=== PATIENT | male | born 1985 | race Caucasian/White ===

== ENCOUNTER 2018-10-09 23:22 | Emergency (ER) | payer OTHER ==
[2018-10-10] MEDS ORDERED: Omeprazole CAP (NF) 20 MG CAP.DR PO ONE (00:05)
[2018-10-10] MEDS ORDERED: hydrOXYzine HCL TAB* 25 MG PO ONE (00:05)
--- NOTE | 2018-10-10 00:11 | ED ---
Throat Pain/Nasal Congestion - HPI Summary HPI Summary: 33 year male presents with "cotton feeling" in throat. He denies any foreign body sensation. He denies any pain. He was seen in urgent care a couple days ago and he had a negative strep. He was started on Mucinex and Flonase with minimal relief. He states he does have a history of acid reflux. No current abdominal pain. No nausea and no vomiting. Denies any change with food. He states that he feels like he has mucus in the back is throat and it caused him to have a panic attack tonight. Denies any chest pressure or shortness of breath. No sinus congestion. No headache. No other symptoms. Denies any swelling. is on lisinopril. Denies any tongue swelling. - History of Current Complaint Chief Complaint: EDThroatPain Time Seen by Provider: 10/09/18 23:46 - Allergies/Home Medications Allergies/Adverse Reactions: Allergies Allergy/AdvReac Type Severity Reaction Status Date / Time Sulfa (Sulfonamide Allergy Hives Verified 10/09/18 23:26 Antibiotics) Home Medications: Home Medications Cholecalciferol (Vitamin D3) [Vitamin D3] 1,000 unit PO DAILY 10/10/18 [History Confirmed 10/10/18] Lisinopril TAB* [Prinivil TAB*] 20 mg PO DAILY 10/10/18 [History Confirmed 10/10] PMH/Surg Hx/FS Hx/Imm Hx Endocrine/Hematology History: Denies: Hx Anticoagulant Therapy Respiratory History: Denies: Hx Asthma Infectious Disease History: No Infectious Disease History: Denies: Traveled Outside the [place] in Last 30 Days - Family History Known Family History: Positive: Non-Contributory - Social History Alcohol Use: None Substance Use Type: Reports: Marijuana Smoking Status (MU): Light Every Day Tobacco Smoker Review of Systems Negative: Fever Positive: Sore Throat Negative: Chest Pain Negative: Shortness Of Breath All Other Systems Reviewed And Are Negative: Yes Physical Exam Triage Information Reviewed: Yes Vital Signs On Initial Exam: Initial Vitals Temp Pulse Resp BP Pulse Ox 97.7 F 97 16 147/84 97 10/09/18 23:25 10/09/18 23:25 10/09/18 23:25 10/09/18 23:25 10/09/18 23:25 Vital Signs Reviewed: Yes Appearance: Positive: Well-Appearing Skin: Positive: Warm, Dry Head/Face: Positive: Normal Head/Face Inspection Eyes: Positive: Normal, EOMI, BECKIE, Conjunctiva Clear ENT: Positive: Normal ENT inspection, Pharynx normal, TMs normal, Uvula midline , Other - soft palate symmetric, no angioedema, no thrush seen,. Negative: Pharyngeal erythema, Tonsillar swelling, Tonsillar exudate, Trismus, Muffled voice Neck: Positive: Supple, Nontender, No Lymphadenopathy Respiratory/Lung Sounds: Positive: Clear to Auscultation, Breath Sounds Present Cardiovascular: Positive: Normal, RRR Musculoskeletal: Positive: Normal Neurological: Positive: Normal Psychiatric: Positive: Normal Diagnostics - Vital Signs Vital Signs Temp Pulse Resp BP Pulse Ox 10/09/18 23:25 97.7 F 97 16 147/84 97 - Laboratory Lab Statement: Any lab studies that have been ordered have been reviewed, and results considered in the medical decision making process. EENT Course/Dx - Course Course Of Treatment: 33 year male presents with "cotton feeling" in throat. He denies any foreign body sensation. He denies any pain. He was seen in urgent care a couple days ago and he had a negative strep. He was started on Mucinex and Flonase with minimal relief. He states he does have a history of acid reflux. No current abdominal pain. No nausea and no vomiting. Denies any change with food. He states that he feels like he has mucus in the back is throat and it caused him to have a panic attack tonight. Denies any chest pressure or shortness of breath. No sinus congestion. No headache. No other symptoms. Denies any swelling. is on lisinopril. Denies any tongue swelling. On exam pharynx normal. Tongue normal. no evidence of thrush. No cobblestoning. no angioedema. Discuss could be acid reflux causing symptoms so will start omeprazole. will give hydroxyzine for anxiety which will also help if symptoms are post nasal drip related although patient declines feeling post nasal drip. Told to follow-up with primary. Gave referral to ENT if not improving. Patient understands agrees with plan. - Differential Diagnoses Differential Diagnoses: Pharyngitis, Tonsilitis, Other - postnasal drip - Diagnoses Provider Diagnoses: Burning sensation of throat Discharge - Sign-Out/Discharge Documenting (check all that apply): Patient Departure Patient Received Moderate/Deep Sedation with Procedure: No - Discharge Plan Condition: Good Disposition: HOME Prescriptions: hydrOXYzine HCL TAB* [Atarax 25 MG TAB*] 25 mg PO TID PRN #16 tab PRN Reason: Anxiety Omeprazole CAP (NF) [Prilosec CAP* 20 MG] 20 mg PO DAILY #13 cap.dr Referrals: [facility] [Outside] Loki Farfan MD [Medical Doctor] - Additional Instructions: take omeprazole once a day for 13 days Continue flonase Use hydroxyzine up to three times a day as needed for anxiety or sore throat Follow up with primary Return to ED if develop any new or worsening symptoms - Billing Disposition and Condition Condition: GOOD Disposition: Home
[2018-10-10 00:34] VITALS: BP 132/71
[2018-10-10] MEDS ORDERED: Pantoprazole TAB * 40 MG TAB PO ONE (01:00)
== END 2018-10-10 00:33 | disposition home or self-care (01) ==
LOC: ED 23:22
DX: K13.29 Other disturbances of oral epithelium, including tongue (principal); J02.9 Acute pharyngitis, unspecified; F41.0 Panic disorder [episodic paroxysmal anxiety]; Z88.2 Allergy status to sulfonamides; F17.200 Nicotine dependence, unspecified, uncomplicated
CPT/HCPCS: 99282; A9270-GY

== ENCOUNTER 2019-07-19 13:08 | Emergency (ER) | payer OTHER ==
[2019-07-19 13:15] VITALS: BP 161/96
--- NOTE | 2019-07-19 13:41 | ED ---
Headache - HPI Summary HPI Summary: Patient is a 34 y/o M presenting to [facility] with complaints of BOURNE and right eye pain. Sx have been present for the past few days. Patient notes that he experiences frequent HAs. He endorses Hx of migraines and HAs. He states that he has not had a migraine since college, but notes that he gets regular, mild HAs. He notes that his HAs are typically unilateral and frontal. Stress aggravates his HAs. On triage, pain is rated 4/10. Patient occasionally experiences dizziness with his HAs, but does not note any currently. Right eye pain is also endorsed, he states that the area feels "cold" but denies numbness at this area and blurred vision. He denies nausea as well. Patient notes that he was recently switched over to new BP medications. He was formerly taking amlodipine 10 mg, but starting 07/07/19 he began to take benazepril 20 mg and amlodipine 5 mg. Patient notes that he began to develop spots on his arms Robert2018. He stopped taking these medications and was evaluated by retanned leather roller. He was told skin Sx were likely eczema, patient restarted his medications on 07/14/19. Patient estimates that his home-measured BPs have been 150s/90s. He started taking medication for elevated BP approximately two years ago. No PMHx of diabetes, cardiac disease, or respiratory disease noted. FMHx of cancer, HTN in father, HLD in mother noted. Home medications and allergies are reviewed. - History Of Current Complaint Chief Complaint: EDHeadache Stated Complaint: HIGH BP, HEADACHE PER PT Time Seen by Provider: 07/19/19 13:18 Hx Obtained From: Patient Onset/Duration: Started days ago, Still Present Currently Pain Is: Moderate Timing: Constant, Days Aggravating Factor: Other - stress Associated Signs And Symptoms: Other (Noted In Comments) - positive - right eye pain, area is "cold"; negative - dizziness, numbness, nausea, visual changes - Allergies/Home Medications Allergies/Adverse Reactions: Allergies Allergy/AdvReac Type Severity Reaction Status Date / Time Sulfa (Sulfonamide Allergy Hives Verified 07/19/19 13:15 Antibiotics) Home Medications: Home Medications Acetaminophen [Tylenol Extra Strength] 1,000 mg PO DAILY PRN 07/19/19 [History Confirmed 07/19/19] Acetaminophen/Chlorpheniramine [Coricidin Hbp Cold-Flu Tablet] 1 each PO DAILY PRN 07/19/19 [History Confirmed 07/19/19] Amlodipine Besylate/Benazepril [Amlodipine-Benazepril 5-20 mg] 1 each PO DAILY 07/19/19 [History Confirmed 07/19/19] Famotidine TAB* [Pepcid 20 MG TAB*] 40 mg PO BEDTIME 07/19/19 [History Confirmed 07/19/19] Omeprazole CAP (NF) [Prilosec CAP* 20 MG] 40 mg PO DAILY 07/19/19 [History Confirmed 07/19/19] PMH/Surg Hx/FS Hx/Imm Hx Endocrine/Hematology History: Denies: Hx Anticoagulant Therapy Cardiovascular History: Reports: Hx Hypertension Respiratory History: Denies: Hx Asthma Neurological History: Reports: Hx Headaches, Hx Migraine Infectious Disease History: No Infectious Disease History: Denies: Traveled Outside the [place] in Last 30 Days - Family History Known Family History: Positive: Hypertension, Other - CA, HLD - Social History Alcohol Use: None Substance Use Type: Reports: Marijuana Smoking Status (MU): Light Every Day Tobacco Smoker Review of Systems ENT: Other - negative - visual changes; positive - right eye pain, right eye area is "cold" Negative: Nausea Neurological: Other - negative - dizziness Positive: Headache All Other Systems Reviewed And Are Negative: Yes Physical Exam - Summary Physical Exam Summary: Appearance: Well-appearing, Well-nourished, lying in bed comfortably Skin: Warm, dry, no obvious rash Eyes: sclera anicteric, no conjunctival pallor ENT: mucous membranes moist, pharynx appears normal Neck: Supple, nontender Respiratory: Clear to auscultation, no signs of respiratory distress Cardiovascular: Normal S1, S2. No murmurs. Normal distal pulses in tibial and radial bilaterally. Abdomen: Soft, nontender, normal active bowel sounds present Musculoskeletal: Normal, Strength/ROM Intact Neurological: A&Ox3, awake and alert, mentation is normal, speech is fluent and appropriate, Level of consciousness nml. The patient is alert and oriented. Cranial nerves are grossly intact. Gaze is conjugate and without nystagmus. Peripheral vision is intact to confrontation. There are no gross sensory abnormalities to light touch. There is no truncal or fine motor ataxia. Gait is normal. Fundoscopic exam is normal. Normal eyegrounds noted. No papilloedema, no erythema, no exudates, no drainage noted. Psychiatric: affect is normal, does not appear anxious or depressed Triage Information Reviewed: Yes Vital Signs On Initial Exam: Initial Vitals Temp Pulse Resp BP Pulse Ox 98.1 F 98 16 161/96 100 07/19/19 13:10 07/19/19 13:10 07/19/19 13:10 07/19/19 13:10 07/19/19 13:10 Vital Signs Reviewed: Yes Procedures - Sedation Patient Received Moderate/Deep Sedation with Procedure: No Diagnostics - Vital Signs Vital Signs Temp Pulse Resp BP Pulse Ox 07/19/19 13:10 98.1 F 98 16 161/96 100 - Laboratory Lab Statement: Any lab studies that have been ordered have been reviewed, and results considered in the medical decision making process. Headache Course/Dx - Course Course Of Treatment: Patient is a 34 y/o M presenting to [facility] with complaints of BOURNE and right eye pain. Sx have been present for the past few days. Patient notes that he experiences frequent HAs. He endorses Hx of migraines and HAs. He states that he has not had a migraine since college, but notes that he gets regular, mild HAs. He notes that his HAs are typically unilateral and frontal. Stress aggravates his HAs. Patient occasionally experiences dizziness with his HAs, but does not note any currently. Right eye pain is also endorsed, he states that the area feels "cold" but denies numbness at this area and blurred vision. He denies nausea as well. Patient notes that he was recently switched over to new BP medications. He was formerly taking amlodipine 10 mg, but starting 07/07/19 he began to take benazepril 20 mg and amlodipine 5 mg. Patient notes that he began to develop spots on his arms [place] Viviana 2018. He stopped taking these medications and was evaluated by retanned leather roller. He was told skin Sx were likely eczema, patient restarted his medications on 07/14/19. Patient estimates that his home-measured BPs have been 150s/90s. He started taking medication for elevated BP approximately two years ago. No PMHx of diabetes, cardiac disease, or respiratory disease noted. FMHx of cancer, HTN in father, HLD in mother noted. Fundoscopic exam is normal. Normal eyegrounds noted. No papilloedema, no erythema, no exudates, no drainage noted. Patient was discharged to home. He was advised to discuss his HAs further with his PCP and to try migraine medications. He is agreeable with this plan. - Diagnoses Provider Diagnoses: Headache, Essential (primary) hypertension Discharge ED - Sign-Out/Discharge Documenting (check all that apply): Patient Departure - discharge - Discharge Plan Condition: Stable Disposition: HOME Patient Education Materials: Migraine Headache (ED) Referrals: [facility] [Outside] Additional Instructions: I don't think your headaches are related to blood pressure, but you should talk to your doctor about them. If they are happening that often you might benefit from prophylactic anti migraine medication. - Attestation Statements Document Initiated by Nilo: Yes Documenting Scribe: MALLORIE SORIANO Provider For Whom Nilo is Documenting (Include Credential): AN SANTIAGO MD Scribe Attestation: IMALLORIE, scribed for AN SANTIAGO MD on 07/19/19 at 1453. Status of Scribe Document: Ready
--- OUTSIDE RECORDS SUMMARY | 2019-07-19 13:55 | XMS REPORT | Summary of Care ---
:1985 Author Organization [facility] Address [address] [place] [address] Care Team Providers Name Role Phone Leif Kelley MD Primary Care Provider Reason for Visit Reason Comments Follow-up the reflux is not as bad as it was, he does not feel the medication is working too much. Encounter Details Date Type Department Care Team Description 05/31/2019 Office Visit [facility], Laryngopharyngeal reflux Otolaryngology Deyanira Abraham NP (LPR) (Primary Dx) [facility] [address] [facility] [address] [place], [place] [address] [address] [address] [phone] [place], [place] [phone] (Fax) [phone] Allergies Active Allergy Reactions Severity Noted Date Comments Sulfa Antibiotics Rash Low 08/13/2017 At age 5 or 7 Other reaction(s): Urticaria documented as of this encounter (statuses as of 05/31/2019) Medications Medication Sig Dispensed Refills Start Date End Date Status lisinopril 0 10/30/2018 Active (PRINIVIL,ZESTRIL) 20 MG tablet hydrOXYzine (ATARAX) 25 TAKE ONE TABLET 0 11/05/2018 Active MG tablet BY MOUTH EVERY 4 HOURS NEEDED FOR ITCHING guaifenesin (MUCINEX) Take 600 mg by 0 Active 600 MG 12 hr tablet mouth metoclopramide (REGLAN) Take 10 mg by 0 11/16/2018 Active 10 MG tablet mouth amlodipine (NORVASC) 10 Take 10 mg by 0 12/03/2018 Active MG tablet mouth omeprazole (PRILOSEC) Take one capsule 90 capsule 3 03/07/2019 Active 20 MG capsule in the morning, 1/2 hour before eating Additional information Patient not taking. Reported on 05/31/2019 1:54 PM omeprazole (PRILOSEC) 40 MG Take one capsule in the 90 capsule 3 2018 Active capsule morning, 1/2 hour before eating Additional information Patient not taking. Reported on 05/31/2019 1:54 PM Famotidine 20 MG Take 2 tablets 180 tablet 3 05/31/2019 Active Oral Tablet at bedtime. If (PEPCID) it causes stomach upset can decrease to one at bdetime ranitidine Take 2 capsules 180 capsule 3 03/07/2019 Discontinued (ZANTAC) 150 MG at bedtime. If 019 (Discontinued by capsule it causes another clinician) stomach upset can decrease to one at bedtime documented as of this encounter (statuses as of 05/31/2019) Active Problems Problem Noted Date Laryngopharyngeal reflux (LPR) 11/22/2018 Dysphagia 11/22/2018 documented as of this encounter (statuses as of 05/31/2019) Social History Tobacco Use Types Packs/Day Years Used Date Former Smoker Cigarettes 1 10 Quit: 2011 Smokeless Tobacco: Current User Sex Assigned at Date Recorded Not on file Job Start Date Occupation Industry Not on file Not on file Not on file Travel History Travel Start Travel End No recent travel history available. documented as of this encounter Last Filed Vital Signs Not on filedocumented in this encounter Patient Instructions Patient InstructionsDeyanira Guillen NP - 05/31/2019 1:45 PM ESTRestart omeprazole 20 mg in the morning and stop ranitidine and start famotidine 20 mg- take 2 tablets at bedtime. If it causes stomach upset can decrease to one at bedtime Reflux strategies F/u 3 months 2: 19 PM EST documented in this encounter Progress Notes Deyanira Guillen NP - 05/31/2019 1:45 PM EST Tracey Jones is here for an LPR recheck Did great with the medications initially Then the insurance coverage was interrupted and so he was without the meds for a while When he started back up he didn't get any relief so he stopped it Smoking history: Former smoker. Quit 2011. Smoked 1 PPD x 10 years. Currently smoke an E-cigarette Past Medical History: Diagnosis Date Hypertension No past surgical history on file. Current Outpatient Medications Medication Sig Dispense Refill amlodipine (NORVASC) 10 MG tablet Take 10 mg by mouth guaifenesin (MUCINEX) 600 MG 12 hr tablet Take 600 mg by mouth hydrOXYzine (ATARAX) 25 MG tablet TAKE ONE TABLET BY MOUTH EVERY 4 HOURS NEEDED FOR ITCHING 0 lisinopril (PRINIVIL,ZESTRIL) 20 MG tablet metoclopramide (REGLAN) 10 MG tablet Take 10 mg by mouth omeprazole (PRILOSEC) 20 MG capsule Take one capsule in the morning, 1/2 hour before eating 90 capsule 3 omeprazole (PRILOSEC) 40 MG capsule Take one capsule in the morning, 1/2 hour before eating 90 capsule 3 ranitidine (ZANTAC) 150 MG capsule Take 2 capsules at bedtime. If it causes stomach upset can decrease to one at bedtime 180 capsule 3 No current facility-administered medications for this visit. Objective In view of dysphagia, throat clearing and a lump sensation I the throat a flexible laryngoscope was performed Procedure: Flexible Fiberoptic Laryngoscopy Lidocaine 4% with Afrin (1:1) was applied to the nasal cavity. The procedure was described in detailto the patient. The risks benefits, and alternatives were thoroughly discussed and the patient wished to proceed with the recommended procedure. After topical anesthesia and decongestion, the 4 mm laryngoscope was passed through the right naris. The nasal cavities, nasopharynx , oropharynx, hypopharynx, and larynx were all examined. Vocal cords were examined during respiration and phonation. Nasal mucosa pink and moist without polyps, lesions or mucopus. Nasopharynx visualised and found to be normal, with normal midline rise on the nasal surface of the soft palate. The palate elevates up against the back of the throat. There is no evidence of leakage. Patent eustacian tubes bilaterally, and lateral recesses are clear without lesions. The tonsils are not hypertrophic by transoral or transnasal view of the vocal cords. Oropharynx and hypopharynx normal, base of tongue symmetric. Epiglottis normal with normal AE folds and arytenoids. Pyriform sinuses and vallecula visualized and are clear. Vocal cords symmetric and meet at midline on phonation. ADD and ABD are present and symmetrical. No masses, nodules or inflammation of the TVC's detected. Subglottis is clear to the extent visualized. Assessment LPR Dysphagia Plan Restart omeprazole 20 mg in the morning and stop ranitidine and start famotidine 20 mg-take 2 tablets at bedtime. If it causes stomach upset can decrease to one at bedtime Reflux strategies F/u 3 months documented in this encounter Plan of Treatment Date Type Specialty Care Team Description 08/31/2019 Office Visit Otolaryngology Deyanira Guillen NP [address] [place] [address] [phone] Health Maintenance Due Date Last Done Comments MMR Vaccines (1 of 1 - Standard 1985 series) DTaP,Tdap,and Td Vaccines (1 - 1991 Tdap) HIV Screening 1997 Varicella Vaccines (1 of 2 - 13+ 1997 2-dose series) Influenza Vaccine 04/19/2019 Pneumococcal Vaccine: 65+ Years (1 2049 of 2 - PCV13) HIB Vaccines Aged Out No longer eligible based on patient's age to complete this topic Hepatitis A Vaccines Aged Out No longer eligible based on patient's age to complete this topic Hepatitis B Vaccines Aged Out No longer eligible based on patient's age to complete this topic IPV Vaccines Aged Out No longer eligible based on patient's age to complete this topic Pneumococcal Vaccine: Pediatrics Aged Out No longer eligible based on (0 to 5 Years) and At-Risk patient's age to complete this Patients (6 to 64 Years) topic documented as of this encounter Results Not on filedocumented in this encounter Visit Diagnoses Diagnosis Laryngopharyngeal reflux (LPR) - Primary Esophageal reflux documented in this encounter
== END 2019-07-19 13:57 | disposition home or self-care (01) ==
LOC: ED 13:08
DX: I10 Essential (primary) hypertension (principal); F17.200 Nicotine dependence, unspecified, uncomplicated; Z79.899 Other long term (current) drug therapy; Z88.2 Allergy status to sulfonamides
CPT/HCPCS: 99282